=== PATIENT | male | born 1990 | race Two or more races ===

== ENCOUNTER 2016-07-31 12:47 | Emergency (ER) | payer OTHER ==
[~2016-07-31] VITALS: Ht 180.3 cm; Wt 113.4 kg
[2016-07-31] MEDS ORDERED: NKM (13:01)
[2016-07-31 13:10] VITALS: BP 115/66
[2016-07-31] MEDS ORDERED: TdaP Vaccine 0.5ml Syr IM ONE (13:15)
[2016-07-31] MEDS ORDERED: Bacitracin Oint UD TOPIC ONE (13:15)
--- NOTE | 2016-07-31 13:19 | Emergency Room Report ---
History of Present Illness General Chief Complaint: Laceration Source: Patient Present Illness HPI The patient is a 21-year-old male presenting with a left index finger laceration which occurred at work. The patient states that he was chopping with a knife in his right hand when it slipped. Patient noticed immediate pain. Pain is described as a 4/10 dull ache to the left index finger tip. The patient denies any numbness or tingling of the area. Pain does not radiate. Pain is worse with touch only. The patient denies any prior injury to this area. Patient is unsure of last tetanus shot Patient denies any other symptoms Allergies: Coded Allergies: No Known Allergies (Unverified , 07/31/16) Patient History Past Medical History: see triage record Pertinent Family History: none Reviewed Nursing Documentation: PMH: Agreed, PSxH: Agreed Nursing Documentation-PMH Past Medical History: No Stated History Review of Systems All Other Systems: negative except mentioned in HPI Physical Exam Vital Signs Date Time Temp Pulse Resp B/P Pulse Ox O2 Delivery O2 Flow Rate FiO2 07/31/16 12:56 98.1 51 14 115/66 100 Room Air Sp02 EP Interpretation: reviewed, normal General Appearance: no apparent distress, alert, GCS 15, non-toxic Head: normocephalic, atraumatic Eyes: bilateral eye PERRL, bilateral eye normal inspection Cardiovascular #2: 2+ radial (R), 2+ radial (L) Musculoskeletal: back normal, gait/station normal, normal range of motion, tender - TTP over L distal index finger Neurologic: alert, oriented x3, responsive, motor strength/tone normal, sensory intact, normal gait, speech normal Psychiatric: judgement/insight normal, memory normal, mood/affect normal, no suicidal/homicidal ideation Reflexes: 3+ bicep (R), 3+ bicep (L), 3+ tricep (R), 3+ tricep (L), 3+ knee (R) , 3+ knee (L) Skin: normal color, no rash, warm/dry, well hydrated, laceration - There is a < 1cm skin avulsion of distal L index finger with overlying nail avulsion. Lymphatic: no adenopathy Medical Decision Making PA Attestation Dr. Pool is my supervising physician. Patient management was discussed with my supervising physician Diagnostic Impression: Primary Impression: Laceration ER Course The patient is a 21-year-old male presenting with a left index finger laceration Ddx considered include but not limited to fracture, tendon/ligament injury, avulsion, nerve damage, subungual hematoma PE: vitals WNL. NAD There is a <1cm skin avulsion of distal L index finger with overlying nail avulsion. No active bleeding. Sensation intact to light touch. Full active range of motion of the finger. No subungual hematoma. The wound was irrigated copiously with Betadine and normal saline. Bacitracin was applied with sterile dressing. ER precautions are given and the patient will followup with workers compensation. Patient will continue to keep the wound clean and dry and apply bacitracin as directed. Last Vital Signs Date Time Temp Pulse Resp B/P Pulse Ox O2 Delivery O2 Flow Rate FiO2 07/31/16 12:56 98.1 51 14 115/66 100 Room Air Status: improved Disposition: HOME, SELF-CARE Condition: Improved Scripts Ibuprofen* (MOTRIN*) 600 Mg Tablet 600 MG ORAL Q8H Y for For Pain, #30 TAB 0 Refills Prov: KACY SORIANO 07/31/16 Bacitracin (Bacitracin Zinc) 15 Gm Oint...g. 1 APPLIC TOPIC TID, #15 GM Prov: KACY SORIANO 07/31/16 Referrals: NOT CHOSEN JAIR/,REFERRING (PCP) KACY SORIANO Jul 31, 2016 13:19
[2016-07-31] MEDS ORDERED: IBUPROFEN600 MG ORAL (13:32)
[2016-07-31] MEDS ORDERED: BACITRACIN1 APPLIC TOPIC (13:32)
[2016-07-31 13:44] VITALS: BP 115/66
== END 2016-07-31 13:44 | disposition home or self-care (01) ==
LOC: EMR 13:15
DX: S61.211A Laceration without foreign body of left index finger without damage to nail, initial encounter (principal); Z23 Encounter for immunization; W26.0XXA Contact with knife, initial encounter; Y93.G3 Activity, cooking and baking; Y92.511 Restaurant or cafe as the place of occurrence of the external cause; Y99.0 Civilian activity done for income or pay
CPT/HCPCS: 90471; 90715; 99284